=== PATIENT | female | born 1990 | race Caucasian/White ===

== ENCOUNTER 2017-05-02 15:58 | Emergency (ER) | payer MEDICAID ==
[~2017-05-02] VITALS: Ht 149.9 cm; Wt 45.8 kg
[~2017-05-02 15:58] MED LIST: PREN1TAB49 PO
[2017-05-02 16:00] VITALS: BP_SYST 125
[2017-05-02 17:41] LABS: BILIRUBIN,URINE NEGATIVE (NEGATIVE); BLOOD, URINE NEGATIVE (NEGATIVE); CLARITY/URINE CLEAR (CLEAR); COLOR,URINE YELLOW (YELLOW); GLUCOSE,URINE NEGATIVE (NEGATIVE); KETONES,URINE NEGATIVE (NEGATIVE); LEUKOCYTE ESTERASE ,URINE TRACE (NEGATIVE); NITRITE, URINE NEGATIVE (NEGATIVE); PROTEIN URINE NEGATIVE (NEGATIVE); UROBILINOGEN,URINE 0.2 (0.2-1.0)
[2017-05-02 17:42] LABS: RBC,URINE 0-3 /HPF (0-3)
[2017-05-02 17:43] LABS: BACTERIA,URINE FEW /HPF (None Seen); MUCUS,URINE None Seen /LPF (None Seen)
[2017-05-02 20:30] VITALS: BP_SYST 120
== END 2017-05-02 20:30 | disposition home or self-care (01) ==
LOC: SED 15:58
DX: R10.9 Unspecified abdominal pain (principal); Z79.899 Other long term (current) drug therapy
CPT/HCPCS: 74020-TC; 81000-TC; 81025; 99285